=== PATIENT | male | born 1985 | race Caucasian/White ===

== ENCOUNTER 2020-08-08 17:43 | Emergency (ER) | payer OTHER ==
[~2020-08-08] VITALS: Ht 180.3 cm; Wt 86.2 kg
== END 2020-08-08 20:36 | disposition home or self-care (01) ==
LOC: ER 17:43
DX: Z76.0 Encounter for issue of repeat prescription (principal); F11.10 Opioid abuse, uncomplicated; Z88.2 Allergy status to sulfonamides; F17.200 Nicotine dependence, unspecified, uncomplicated
CPT/HCPCS: 99281; A9270